=== PATIENT | male | born 1995 | race Two or more races ===

== ENCOUNTER 2021-08-08 09:34 | Outpatient (REF) | payer OTHER, SELFPAY ==
[2021-08-08 11:36] LABS: Alanine Aminotransferase 10 U/L (0-40); Albumin Level 4.8 g/dL (3.5-5.0); Alkaline Phosphatase 61 U/L (39-117); Anion Gap 11 (12-20); Aspartate Amino Transferase 14 U/L (5-37); Bilirubin Total 1.1 mg/dL (0.0-1.0); Blood Urea Nitrogen 9 mg/dL (9-16); Carbon Dioxide 30 mmol/L (22-29); Chloride 103 mmol/L (96-108); Cholesterol 180 mg/dL; Estimated Glomerular Filt Rate > 60; Glucose Fasting 92 mg/dL (60-99); HDL Cholesterol 53 mg/dL; LDL Cholesterol Calculated 112 mg/dl; Potassium 4.2 mmol/L (3.3-5.1); Sodium 140 mmol/L (135-145); Triglycerides 77 mg/dL
[2021-08-08 12:00] LABS: TSH reflex Free T4 1.34 uIU/mL (0.32-4.0)
[2021-08-08 15:21] LABS: Appearance Urine CLEAR; Color Urine YELLOW; Glucose Urine UA NEG (NEG); Leukocyte Esterase Urine NEG (NEG); Nitrite Urine NEG (NEG); PH 7.5 (5.0-8.0); Urine Blood NEG (NEG); Urine Ketones NEG (NEG); Urine Protein NEG (NEG-TRACE)
== END 2021-08-08 09:35 | disposition home or self-care (01) ==
LOC: HO.HMGCLDS 09:34
PROVIDERS: PCP Nurse Practitioner Family; Visit Provider Nurse Practitioner Family
DX: Z00.00 Encounter for general adult medical examination without abnormal findings (principal)
CPT/HCPCS: 36415; 80053; 80061; 81003; 84443